=== PATIENT | female | born 1980 | race Two or more races ===

== ENCOUNTER 2024-04-27 18:53 | Emergency (ER) | payer MEDICAID ==
[~2024-04-27] VITALS: Ht 160 cm; Wt 90.7 kg
[2024-04-27] MEDS ORDERED: KETOROLAC TROMETHAMINE 15 MG/ML VIAL ONE (19:25)
[2024-04-27] MEDS ORDERED: ACETAMINOPHEN ES 500 MG TABLET ONE (19:34)
[2024-04-27] MEDS: KETOROLAC TROMETHAMINE 15 MG/ML VIAL IM ONE (19:37)
[2024-04-27] MEDS: ACETAMINOPHEN ES 500 MG TABLET PO ONE (19:40)
[2024-04-27 20:42] VITALS: BP 150/78; TEMP 97.4; O2SAT 99
== END 2024-04-27 20:42 | disposition home or self-care (01) ==
LOC: ER 19:05
DX: M25.551 Pain in right hip (principal); W10.9XXA Fall (on) (from) unspecified stairs and steps, initial encounter; Y93.89 Activity, other specified; Y92.89 Other specified places as the place of occurrence of the external cause; Y99.8 Other external cause status
CPT/HCPCS: 99284; 96372; 73502; 72170; J1885